=== PATIENT | male | born 1955 | race Two or more races ===

== ENCOUNTER 2021-03-11 14:49 | Outpatient (CLI) | payer BC, SELFPAY ==
--- NOTE | 2021-03-12 16:18 | WPDSIXMINUTE ---
Six Minute Walk Procedure Procedure Performed Pulmonary Stress Test (6 min walk) Six Minute Walk This is a 6 minute walk test. The test was performed and interpreted in accordance with the 2014 ERS/ATS task force guidelines. Findings: The patient's resting room air oxygen saturation measured by pulse oximetry was 96% and heart rate was 79 bpm. Patient ambulated for 427 meters and oxygen saturation remained 92 to 99%. Heart rate at the end of the study was 103 bpm. The patient did not qualify for supplemental oxygen at rest or with ambulation. There are no prior studies for comparison.
--- NOTE | 2021-03-12 16:18 | WPDPFTINT ---
PFT Procedure Performed PFT Procedure Performed Spirometry with Pre/Post Bronchodilator Plethysmography (Lung Vol) Diffusing Cap (DLCO) Flow Vol Loop PFT Interpretation This is a pulmonary function test with pre and post-bronchodilator spirometry, plethysmography and diffusing capacity. The test was performed and results interpreted in accordance with the 2019 and 2005 ATS/ERS Task Force guidelines respectively using the Global Lung Function Initiative-2012 reference equations. Patient demonstrated good effort and cooperation. Reproducibility criteria were met. The quality of the pre bronchodilator spirometry maneuver was Grade A and post bronchodilator spirometry maneuver was Grade A. Findings: Spirometry: The contour the inspiratory and expiratory flow tracing are normal. The pre bronchodilator FVC is 3.59 L, 92% predicted. The pre bronchodilator FEV1 is 2.67 L, 88% predicted. The pre bronchodilator FEV1: FVC ratio 74%. The post bronchodilator FVC is 3.52 L, representing a 2% decrease. The post bronchodilator FEV1 is 2.57 L, representing a 4% decrease. The post bronchodilator FEV1: FVC ratio 73%. Plethysmography: The total lung capacity is 5.22 L, 79% predicted. The functional residual capacity is 3.06 L, 89% predicted. The residual volume is 1.63 L, 74% predicted. Diffusing capacity: The diffusing capacity unadjusted for hemoglobin is 16.9, 63% predicted. The diffusing capacity adjusted for alveolar volume is 3.97, 93% predicted. Impression: The spirometry is normal without evidence of an obstructive abnormality. There is no significant improvement after inhaling a single dose of albuterol. The lung volumes are normal. The diffusing capacity unadjusted for hemoglobin is mildly decreased and normalizes when adjusted for alveolar volume. There are no prior studies for comparison
== END 2021-03-11 14:50 | disposition home or self-care (01) ==
PROVIDERS: PCP Nurse Practitioner Gerontology; Visit Provider Internal Medicine Critical Care Medicine
DX: R06.02 Shortness of breath (principal)
CPT/HCPCS: 94060; 94618; 94726; 94729

== ENCOUNTER 2021-04-13 07:43 | Outpatient (CLI) | payer BC, SELFPAY ==
--- NOTE | 2021-04-22 10:51 | WPDSLEEPSTUD ---
Sleep Study Date of Study: 04/13/21 Ordering Provider: Deepti Haas MD Interpreting Physician: Deepti Haas MD Sleep Study Type: Polysomnogram Height: 1.68 m Weight: 77.564 kg Body Mass Index: 27.6 Neck Circumference (inches): 15 [place]: 20 Reason for Sleep Study Hypersomnolence during the day, nonrestorative sleep Sleep History Aroldo Malagon is a 65 yo man with excessive daytime sleepiness. He has medical comorbidities including diabetes for 10 years, mild depression, and leg numbness for the past year and a half. He frequently awakens from sleep feeling short of breath. He rarely awakens at night with heartburn, belching or coughing. He constantly snores loudly. He frequently has trouble breathing with a cold. He frequently will get gasps for breath at night. He frequently has breathing problems at night observed by others. He occasionally sweats excessively at night. He does not notice his heart pounding or beating irregularly at night. He constantly falls asleep during the day, constantly falls asleep involuntarily but does not fall asleep often while driving but this is has still happen. He constantly has loss of muscle tone with strong emotion. He frequently has daytime difficulties due to excessive sleepiness. He does not feel paralyzed on waking or falling asleep. His sleep questionnaire shows that he has vivid dreamlike scenes upon awakening or falling asleep. He does not feel afraid to go to sleep. He does not have nightmares. He occasionally remembers his dreams. He frequently has racing thoughts. He constantly feels sad or depressed. He frequently has anxiety. He constantly has muscular tension. He rarely notices parts of his body jerking. He does not kick at night. He frequently has crawling and aching feelings in his legs and leg pain during the night. He does not have morning jaw pain. He does not grind his teeth during sleep. He frequently has bothered by pain during the day. He occasionally is awakened by pain at night. He frequently wakes up feeling stiff in the morning with sore achy muscles. He does not wake up with pain in the neck and spine. He has fatigue, acid reflux, memory problems, concentration difficulties, depression. Normal bedtime is between 10:30 p.m. and 12 midnight falling asleep quickly. He wakes up 2-3 times during the night and stays awake on average between 20 minutes but sometimes up to an hour. If he cannot go back to sleep easily he watches television. He takes naps in the afternoon or evening. A short nap is refreshing. He is drowsy in the morning for 4 hours after waking. His reported wake up time is 5:00 a.m. He generally does not awaken feeling refreshed. Habits: Tobacco half pack per day. Caffeine 2 cups a day. No alcohol or recreational drugs. [facility] Past Medical History Medical History (Updated 04/22/21 @ 13:22 by Deepti Haas MD) COPD (chronic obstructive pulmonary disease) Depression Diabetes peripheral neuropathy GERD (gastroesophageal reflux disease) Hypersomnolence Surgical History Surgical History Status post laser cataract surgery of both eyes Family History Family History Sibling Diabetes mellitus Depression Cancer Mother Cancer Social History Social History Smoking packs per day: 0.5 Smoking cigarettes per day: 10.0 Years smoked: 26 Smoking pack-years: 13.00 Smoking status: Current every day smoker (1/2 pack per day, started age 27, max 1 ppd in his 50s; 33 pack years) Medications Home Medications Medication Instructions Recorded Confirmed Type glipizide 5 mg tablet, extended 5 mg PO DAILY 01/19/21 03/24/21 History release 24 hr metformin 1,000 mg tablet 1,000 mg PO BID 01/19/21 03/24/21 History nicotine 14 mg/24 hr daily 1 patch OCASIO
[2021-04-22 13:09] VITALS: BMI 27.6
== END 2021-04-14 06:21 | disposition home or self-care (01) ==
PROVIDERS: PCP Nurse Practitioner Gerontology; Visit Provider Internal Medicine Critical Care Medicine
DX: G47.19 Other hypersomnia (principal); G47.33 Obstructive sleep apnea (adult) (pediatric); G25.81 Restless legs syndrome
CPT/HCPCS: 95810

== ENCOUNTER 2021-05-12 06:48 | Outpatient (CLI) | payer BC, SELFPAY ==
--- NOTE | ~2021-05-12 | PE_ITS ---
EXAMINATION: PET skull to mid thigh DATE: 05/12/2021 16:08 INDICATION: Solitary pulmonary nodule, patient reportedly had an 8 mm nodule of the right middle lobe on outside hospital CT scans. TECHNIQUE: Blood glucose level was 128 mg/dL. 11.870 mCi of 18-fluorodeoxyglucose (18-FDG) was admini stered i.v. Low dose computed tomography (CT) images were acquired from the base of the brain to the proximal thighs for attenuation correction and anatomic localization. Positron emission tomography (P ET) images were acquired in the same distribution beginning 61 minutes after injection. The dose-brynn th product (DLP) was 477.87 mGy-cm. COMPARISON: None FINDINGS: Head/neck: No abnormal FDG uptake is identified. Chest: There is an 8 mm nodule in the right middle lobe without associated FDG uptake. Mild dependent atelectasis is noted. The lungs are free of focal airspace opacities. There is no pleural effusion o r pneumothorax. No pathologically enlarged thoracic lymph nodes are identified. The heart size is nor mal. Abdomen/pelvis/proximal thighs: No abnormal FDG uptake is identified. Physiologic FDG activity is pre sent in the bowel and urinary tract. The liver, spleen, pancreas, and gallbladder are normal. There a ppear to be bilateral adrenal adenomas measuring 7 mm on the right and 11 mm on the left. The kidneys are unremarkable. No pathologically enlarged abdominal or pelvic lymph nodes are identified. There i s no free intraperitoneal gas or evidence of bowel obstruction. The appendix is normal. Musculoskeletal: No abnormal FDG uptake is identified. 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 This results in central canal stenosis at C1-C2. There is also cranial mi gration of the odontoid which projects into the anterolateral aspect of the foramen magnum on the rig ht and causes mild stenosis. There is moderate cervical and thoracic spondylosis. IMPRESSION: 1. Right middle lobe nodule without associated FDG uptake, probably benign. Patient's clinical notes suggests that this nodule may be stable for least one year however outside hospital imaging is not cu rrently available for direct comparison. If the nodule has been stable for 12 months, additional foll ow-up CT in 12 months would be recommended. 2. 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 Clinic al correlation is recommended. Reviewed, dictated and finalized at location B. IMPRESSION: 1. Right middle lobe nodule without associated FDG uptake, probably benign. Diana garcia's clinical notes suggests that this nodule may be stable for least one yea r however outside hospital imaging is not currently available for direct compar franki. If the nodule has been stable for 12 months, additional follow-up CT in 1 2 months would be recommended. 2. 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 Clinical correlation is recommended.
[2021-05-12 08:10] LABS: Glucose Point of Care 128 mg/dl (65-105)
== END 2021-05-12 06:49 | disposition home or self-care (01) ==
PROVIDERS: Visit Provider Internal Medicine Critical Care Medicine
DX: R91.1 Solitary pulmonary nodule (principal)
CPT/HCPCS: 78815; A9552